=== PATIENT | male | born 1955 | race Caucasian/White ===

== ENCOUNTER 2023-10-19 12:41 | Day surgery (SDC) | payer OTHER ==
[~2023-10-19] VITALS: Ht 182.9 cm; Wt 106.7 kg
[~2023-10-19 12:41] MED LIST: Lactated Ringer's 1,000 ML IV ONE; propofoL 50 ML IV ONE
[2023-10-19] MEDS ORDERED: LOSA25 (12:59)
[2023-10-19] MEDS ORDERED: Lactated Ringer's 1,000 ML IV ONE (14:05)
[2023-10-19] MEDS ORDERED: NS 500 ML IV ONE ×2 (14:57→15:11)
== END 2023-10-19 15:46 | disposition home or self-care (01) ==
LOC: ORSCSDS 12:41
PROVIDERS: Internal Medicine Gastroenterology
PROC: 0DBM8ZX Excision of Descending Colon, Via Natural or Artificial Opening Endoscopic, Diagnostic (ICD-10-PCS; principal; 2023-10-19 13:45)
PROC: 0DB48ZX Excision of Esophagogastric Junction, Via Natural or Artificial Opening Endoscopic, Diagnostic (ICD-10-PCS; principal; 2023-10-19 13:45)
PROC: 0DB68ZX Excision of Stomach, Via Natural or Artificial Opening Endoscopic, Diagnostic (ICD-10-PCS; principal; 2023-10-19 13:45)
PROC: 0DBL8ZX Excision of Transverse Colon, Via Natural or Artificial Opening Endoscopic, Diagnostic (ICD-10-PCS; principal; 2023-10-19 13:45)
PROC: 0DBH8ZX Excision of Cecum, Via Natural or Artificial Opening Endoscopic, Diagnostic (ICD-10-PCS; principal; 2023-10-19 13:45)
PROC: 0DBK8ZX Excision of Ascending Colon, Via Natural or Artificial Opening Endoscopic, Diagnostic (ICD-10-PCS; principal; 2023-10-19 13:45)
DX: K21.00 Gastro-esophageal reflux disease with esophagitis, without bleeding (principal); K31.7 Polyp of stomach and duodenum; Z12.11 Encounter for screening for malignant neoplasm of colon; D12.0 Benign neoplasm of cecum; D12.2 Benign neoplasm of ascending colon; D12.3 Benign neoplasm of transverse colon; D12.4 Benign neoplasm of descending colon; K64.4 Residual hemorrhoidal skin tags; I10 Essential (primary) hypertension; Z79.899 Other long term (current) drug therapy
CPT/HCPCS: 88305; 88312; J2704; J7040; J7120